=== PATIENT | male | born 1950 | race Caucasian/White ===

== ENCOUNTER 2019-06-16 07:44 | Outpatient (CLI) | payer BC ==
[2019-06-16 12:05] LABS: Hemoglobin 13.3 g/dL (14.0-18.0); Mean Corpuscular HGB CONC 33.8 g/dL (32.0-36.0); Mean Corpuscular Hemoglobin 32.7 pg (27.0-31.0); Mean Corpuscular Volume 96.6 fL (78.0-98.0); Mean Platelet Volume 7.6 fL (7.4-10.4); Platelet Count 252 thou/uL (130-400); RBC Distribution Width 11.6 % (11.5-14.5); Red Blood Cell (RBC) Count 4.06 mill/uL (4.70-6.10); White Blood Cell (WBC) Count 5.7 thou/uL (4.8-10.8)
[2019-06-16 12:31] LABS: Anion Gap 12 mmol/L (10-20); BUN (Urea Nitrogen) 21 mg/dL (8.4-25.7); Calc. Creatinine Clearance 0 mL/min (70-130); Calcium 9.2 mg/dL (7.8-10.44); Carbon Dioxide 26 mmol/L (23-31); Chloride 104 mmol/L (98-107); Estimated GFR-MDRD 83; Glucose 86 mg/dL (83-110); Potassium 4.4 mmol/L (3.5-5.1); Sodium 138 mmol/L (136-145)
== END 2019-06-16 07:45 | disposition home or self-care (01) ==
LOC: LABBT 07:44
PROVIDERS: ATTEND Neurological Surgery
DX: Z01.812 Encounter for preprocedural laboratory examination (principal); M51.16 Intervertebral disc disorders with radiculopathy, lumbar region
CPT/HCPCS: 80048; 85027

== ENCOUNTER 2019-06-21 05:34 | Day surgery (SDC) | payer BC ==
[2019-06-16 10:03] VITALS: BMI 27.4
--- NOTE | 2019-06-21 00:59 | HP ---
HISTORY OF PRESENT ILLNESS: Mr. Nath is a pleasant 69-year-old man, presenting today for a few years worth of on and off lower back pain and leg pain over the last 6 to 8 months that is becoming increasingly severe. He reports right lower extremity pain and that is most profound in the buttock and lateral right hip that radiates down the right lower extremity to the foot and L5 pattern. He reports some tingling but no numbness or weakness. He has been managing this with epidural steroid injections with Dr. Ureña at [facility], which he reports gave him profound relief but only for around 4 days each time. He had also attempted 14 sessions of PT, which has failed to improve his symptoms. He additionally reports a great deal of discomfort and annoying pain in the deep buttock bilaterally when sitting for extended periods of time. He brings an MRI of disk from [facility] which reveals overall well-appearing spine other than at L4-L5 where he has a large central right eccentric disk herniation causing severe right-sided lateral recess stenosis and at least moderate central canal stenosis. PHYSICAL EXAMINATION: He is alert and oriented x3. Gait is mildly antalgic. Lower extremity exam is normal. He does have a positive right straight leg raise. PAST MEDICAL HISTORY: Significant for arrhythmia, hyperlipidemia, hypertension, coronary arterial disease, seasonal allergies. CURRENT MEDICATIONS: 1. Naproxen. 2. Ibuprofen. 3. Famotidine. 4. Aspirin. 5. Lumigan. 6. Lisinopril. 7. Zolpidem. 8. Atorvastatin. 9. Flecainide. PAST SURGICAL HISTORY: Right bunionectomy, left bunionectomy, and ACDF. ASSESSMENT: Lumbar disk herniation with radiculopathy. PLAN: Dr. Guthrie met with the patient, reviewed imaging, and advocated for a right L4 diskectomy. He explained to the patient the risks, benefits, and alternatives to the procedure. The patient expressed understanding and elected to move forward with surgery as discussed. I do believe the patient is mentally competent and capable of making medical decisions for himself. We will move forward with surgery as planned. Job ID: [id number]
[2019-06-21] MEDS ORDERED: Thrombin 5000 UNITS/5 ML VIAL ONE (06:12)
[2019-06-21] MEDS ORDERED: EPINEPHrine 1 MG/ML AMP ONE (06:12)
[2019-06-21] MEDS ORDERED: Bupivacaine PF 0.5% 30 ML VIAL ONE (06:12)
[2019-06-21] MEDS ORDERED: Fentanyl 100 MCG/2 ML VIAL ONE ×4 (06:55→09:27)
--- NOTE | 2019-06-21 09:07 | OP ---
DATE OF PROCEDURE: 06/21/2019 MASK DESIGNER: Andrey Bajwa PA-C INDICATION: Pain. DIAGNOSIS: Lumbar radiculopathy. PROCEDURE PERFORMED: L4 diskectomy. ANESTHESIA: General. DESCRIPTION OF PROCEDURE: The patient was brought into the operating room and placed under general anesthesia. He was flipped from the supine to prone position on operating room table. A linear incision was planned over the L4 segment. After prepping and draping and after an appropriate operative pause, the incision was created. The soft tissues were swept away from midline on the right. A self-retaining retractor was placed. High-speed cutting drill bit as well as 2, 3, and 4 mm Kerrisons were used to perform a laminectomy on the inferior aspect of L4 and superior aspect of L5. The descending L5 nerve root was identified and mobilized medially with a nerve root retractor. An annulotomy was performed in the disk space, decompressing the right and directly left side. After completing the decompression, the wound was irrigated. Hemostasis was maintained throughout. The wound was then closed in anatomic layers and a pressure dressing was applied. There were no known procedural complications. Job ID: [id number]
[2019-06-21] MEDS ORDERED: Tamsulosin HCl 0.4 MG CAP ONE (09:15)
[2019-06-21] MEDS ORDERED: Ketorolac Tromethamine 30 MG/ML VIAL ONE (10:23)
[2019-06-21] MEDS ORDERED: Dexamethasone 20 MG/5 ML VIAL ONE (10:23)
[2019-06-21] MEDS ORDERED: Lidocaine 1% PF 5 ML VIAL ONE (10:23)
[2019-06-21] MEDS ORDERED: PROPOFOL 200 MG/20 ML VIAL ONE (10:23)
[2019-06-21] MEDS ORDERED: PHENYLEPHRINE-NS 100 MCG/ML 10 ML SYRINGE ONE (10:23)
[2019-06-21] MEDS ORDERED: Glycopyrrolate 0.2 MG/ML 5 ML SYRINGE ONE (10:23)
[2019-06-21] MEDS ORDERED: Rocuronium Bromide 10 MG/ML (10ML VIAL) ONE (10:23)
[2019-06-21] MEDS ORDERED: Ondansetron PF 4 MG/2 ML Vial ONE (10:23)
[2019-06-21] MEDS ORDERED: EPHEDRINE 25 MG/5 ML SYRINGE ONE (10:23)
[2019-06-21] MEDS ORDERED: HYDROcodone/Acetaminophen 5/325 mg Tablet ONE (10:49)
== END 2019-06-21 13:55 | disposition home or self-care (01) ==
LOC: SDC 05:34
PROVIDERS: ATTEND Neurological Surgery
PROC: 0ST20ZZ Resection of Lumbar Vertebral Disc, Open Approach (ICD-10-PCS; principal; 2019-06-21)
DX: M51.16 Intervertebral disc disorders with radiculopathy, lumbar region (principal); I10 Essential (primary) hypertension; I25.10 Atherosclerotic heart disease of native coronary artery without angina pectoris; I48.91 Unspecified atrial fibrillation; E78.5 Hyperlipidemia, unspecified; Z79.82 Long term (current) use of aspirin; Z79.899 Other long term (current) drug therapy; Z91.013 Allergy to seafood
CPT/HCPCS: 36415; 76000; 85025; 85610; 85730; 99285; J0171; J0690; J1100; J1885; J2001; J2405; J2704; J3010; S0020

== ENCOUNTER 2019-06-21 15:45 | Emergency (ER) | payer BC, MEDICARE ==
[2019-06-21 18:26] LABS: #Lymphocytes 0.5 thou/uL (1.20-3.40); #Monocytes 0.5 thou/uL (0.11-0.59); #Neutrophils 10.8 thou/uL (1.40-6.50); %Eosinophils 0.1 % (0.0-10.0); %Lymphocytes 4.4 % (21.0-51.0); %Monocytes 4.1 % (0.0-10.0); %Neutrophils 91.4 % (42.0-75.0); Hemoglobin 13.7 g/dL (14.0-18.0); Mean Corpuscular HGB CONC 33.9 g/dL (32.0-36.0); Mean Corpuscular Hemoglobin 32.6 pg (27.0-31.0); Mean Corpuscular Volume 96.4 fL (78.0-98.0); Platelet Count 256 thou/uL (130-400); RBC Distribution Width 11.6 % (11.5-14.5); White Blood Cell (WBC) Count 11.8 thou/uL (4.8-10.8)
[2019-06-21 18:35] LABS: INR-International Normal Ratio 0.9; PTT 24.9 SEC (22.9-36.1); Prothrombin Time 12.1 SEC (12.0-14.7)
[2019-06-21] MEDS ORDERED: Oxymetazoline HCl 0.05% (30 ML BOT) ONE (18:58)
== END 2019-06-21 19:00 | disposition home or self-care (01) ==
LOC: ERS 15:45
DX: S19.85XA Other specified injuries of pharynx and cervical esophagus, initial encounter (principal); E78.5 Hyperlipidemia, unspecified; I10 Essential (primary) hypertension; E78.00 Pure hypercholesterolemia, unspecified; Z79.899 Other long term (current) drug therapy; X58.XXXA Exposure to other specified factors, initial encounter
CPT/HCPCS: 36415; 85025; 85610; 85730